=== PATIENT | female | born 1990 | race Caucasian/White ===

== ENCOUNTER 2016-09-17 10:03 | Emergency (ER) | payer BC, MEDICAID, OTHER ==
--- NOTE | 2016-09-17 10:11 | Emergency Department Report ---
Chief Complaint: Vaginal Bleeding Stated Complaint: 10 WKS ,BLOOD IN URINE Time Seen by Provider: 09/17/16 10:07 - HPI History of Present Illness: PT states she is 11 weeks . PT states her lmp was 5-1-17. PT states when she missed her cycle, she took a home test and it was negative. PT states last week, she repeated the test and it was positive. PT states she is having vaginal bleeding now. PT states the bleeding started on . PT states it is like a normal period. PT states she has not seen her OB/ [facility] yet. - ROS Review of Systems: + lower abd cramps - hematuria - dysuria + vaginal bleeding - Exam Physical Exam: pt looks well, non toxic. abd is soft and not tender. MSE screening note: Focused history and physical exam performed. Due to findings the following was ordered: labs, us ED Disposition for MSE Condition: Stable
[2016-09-17 10:13] VITALS: BP 122/80
[2016-09-17 10:32] LABS: Basophils % (Auto) 0.7 % (0.0-1.8); Eosinophils % (Auto) 2.4 % (0.0-4.3); Hematocrit 39.1 % (30.3-42.9); Hemoglobin 13.3 gm/dl (10.1-14.3); Mean Corpuscular HGB Conc 34 % (30-34); Mean Corpuscular Hemoglobin 29 pg (28-32); Mean Corpuscular Volume 84 fl (79-97); Platelet Count 371 K/mm3 (140-440); Red Blood Count 4.66 M/mm3 (3.65-5.03); Red Cell Distribution Width 12.6 % (13.2-15.2); White Blood Count 8.3 K/mm3 (4.5-11.0)
[2016-09-17 10:50] LABS: Alanine Aminotransferase 12 units/L (7-56); Albumin 4.5 g/dL (3.9-5); Albumin/Globulin Ratio 1.3 %; Alkaline Phosphatase 72 units/L (35-129); Anion Gap 17 mmol/L; Blood Urea Nitrogen 9 mg/dL (7-17); Calcium 9.6 mg/dL (8.4-10.2); Carbon Dioxide 27 mmol/L (22-30); Chloride 101.8 mmol/L (98-107); Glucose 89 mg/dL (65-100); Potassium 4.7 mmol/L (3.6-5.0); Sodium 141 mmol/L (137-145); Total Protein 7.9 g/dL (6.3-8.2)
[2016-09-17 11:11] LABS: Bilirubin,Urine NEG (Negative); Blood,Urine LG (Negative); Ketones,Urine NEG (Negative); Leukocyte Esterase,Urine TR (Negative); Nitrite,Urine NEG (Negative); Protein,Urine <15 mg/dL mg/dL (Negative); Urobilinogen,Urine < 2.0 mg/dL (<2.0)
--- NOTE | 2016-09-17 12:18 | Ultrasound Report ---
ULTRASOUND OB LESS THAN 14 WEEKS - TRANSABDOMINAL AND TRANSVAGINAL INDICATION: , bleeding. Serum beta-hCG of 44.46 units. COMPARISON: None similar during this gestation. FINDINGS: Transabdominal and transvaginal pelvic sonography performed in this patient with LMP of 07/02/16 and estimated menstrual age of 11 weeks and 0 days and EDC of 04/08/2017. Uterus approximately 7.7 x 3.2 x 4.2 cm and appears retroverted endovaginally with endometrial thickness of approximately 0.5 cm towards the fundus. No significant pelvic free fluid. Right ovary is 2.4 x 1.6 x 1.7 cm while the left ovary is 3 x 1.2 x 2.6 cm. CONCLUSION: 1. No sonographic evidence of a viable intrauterine gestation at this time, as described. 2. Both ovaries identified, as above. Please also correlate clinically for accuracy of the LMP and with followup serum beta-hCG values, as warranted. Thank you for the opportunity to participate in this patient's care.
--- NOTE | 2016-09-17 14:14 | Emergency Department Report ---
ED HPI - General Chief complaint: Vaginal Bleeding Stated complaint: 10 WKS ,BLOOD IN URINE Time Seen by Provider: 09/17/16 10:07 Source: patient Mode of arrival: Ambulatory Limitations: No Limitations - History of Present Illness Complaint: abdominal pain, vaginal bleeding -: Gradual Location: pelvis, abdomen Radiation: none Severity: mild Severity scale (0 -10): 2 Quality: cramping Consistency: intermittent Improves with: none Worsens with: none Associated symptoms: vaginal bleeding, abdominal pain. denies: nausea/vomiting , vaginal discharge, dysuria, headache, vision changes, malaise, dysparuenia, rash, seizure, shortness of breath, syncope Vaginal bleeding: light :: Yes Number of weeks : 2 OB History - Current : no complications OB History - Previous Pregnancies: no complications Pre- care: none - Related Data : 2 Para: 1 Home Medications Medication Instructions Recorded Confirmed Last Taken Pnv with Ca,No.72/Iron/FA 1 tab PO DAILY 03/22/14 04/10/14 03/22/14 10:00 [ Plus Tablet] 1 Previous Rx's Medication Instructions Recorded Last Taken Type NIFEdipine*For Tocolysis only* 10 mg PO Q6H PRN 30 Days 03/23/14 Unknown Rx [PROCARDIA*For Tocolysis only*] Allergies Allergy/AdvReac Type Severity Reaction Status Date / Time No Known Allergies Allergy Verified 09/17/16 10:07 ED Review of Systems ROS: Stated complaint: 10 WKS ,BLOOD IN URINE Other details as noted in HPI Comment: All other systems reviewed and negative ED Past Medical Hx - Past Medical History Hx Hypertension: No Hx Congestive Heart Failure: No Hx Diabetes: No Hx Deep Vein Thrombosis: No Hx Renal Disease: No Hx Sickle Cell Disease: No Hx Seizures: No Hx Asthma: No Hx COPD: No Hx HIV: No - Social History Smoking Status: Never Smoker Substance Use Type: None - Medications Home Medications: Home Medications Medication Instructions Recorded Confirmed Last Taken Type Pnv with Ca,No.72/Iron/FA 1 tab PO DAILY 03/22/14 04/10/14 03/22/14 10:00 History [ Plus Tablet] 1 NIFEdipine*For Tocolysis only* 10 mg PO Q6H PRN 30 Days 03/23/14 04/10/14 Unknown Rx [PROCARDIA*For Tocolysis only*] ED Physical Exam - General Limitations: No Limitations General appearance: alert, in no apparent distress - Head Head exam: Present: atraumatic, normocephalic - Eye Eye exam: Present: normal appearance - ENT ENT exam: Present: mucous membranes moist - Neck Neck exam: Present: normal inspection - Respiratory Respiratory exam: Present: normal lung sounds bilaterally. Absent: respiratory distress - Cardiovascular Cardiovascular Exam: Present: regular rate, normal rhythm. Absent: systolic murmur, diastolic murmur, rubs, gallop - GI/Abdominal GI/Abdominal exam: Present: soft, normal bowel sounds - Extremities Exam Extremities exam: Present: normal inspection - Back Exam Back exam: Present: normal inspection - Neurological Exam Neurological exam: Present: alert, oriented X3 - Psychiatric Psychiatric exam: Present: normal affect, normal mood - Skin Skin exam: Present: warm, dry, intact, normal color. Absent: rash ED Course Vital Signs 09/17/16 10:08 Temperature 98.2 F Pulse Rate 73 Respiratory 20 Rate Blood Pressure 122/80 O2 Sat by Pulse 100 Oximetry ED Medical Decision Making - Lab Data Result diagrams: 09/17/16 10:15 09/17/16 10:15 - Radiology Data Radiology results: report reviewed, image reviewed - Medical Decision Making patient with minor vaginal bleeding and abdominal cramping, labs negative , HCG at 44 , US is negative. Will need 48 h repeat hcg that she will get with her obgyn , ( already has appointment ), will dc and follow up. Critical care attestation.: If time is entered above; I have spent that time in minutes in the direct care of this critically ill patient, excluding procedure time. ED Disposition Clinical Impression: Threatened , Miscarried within last 12 months Disposition: DC-01 TO HOME OR SELFCARE Is pt being admited?: No Does the pt Need Aspirin: No Condition: Good Additional Instructions: You need to follow up with your OB on Saturday as schedule, for a repeat on the hcg level, Referrals: PRIMARY CARE, [Primary Care Provider] - 3-5 Days Time of Disposition: 14:13
== END 2016-09-17 14:29 | disposition home or self-care (01) ==
LOC: ED 10:03
DX: O20.0 Threatened abortion (principal)
CPT/HCPCS: 36415; 76801; 76817; 80053; 81001; 84702; 85025

== ENCOUNTER 2017-09-11 11:22 | Emergency (ER) | payer BC, OTHER ==
[2017-09-11] MEDS ORDERED: NACL 0.9% 1000 ML 1,000 ML IV ONE (11:37)
[2017-09-11] MEDS ORDERED: MOTRIN PO ONE (11:38)
[2017-09-11] MEDS ORDERED: BICILLIN L-A IM ONE (13:20)
[2017-09-11 13:21] LABS: Hemoglobin 12.8 gm/dl (10.1-14.3); Mean Corpuscular HGB Conc 34 % (30-34); Mean Corpuscular Hemoglobin 28 pg (28-32); Mean Corpuscular Volume 84 fl (79-97); Platelet Count 324 K/mm3 (140-440); Red Cell Distribution Width 13.2 % (13.2-15.2)
--- NOTE | 2017-09-11 13:21 | Emergency Department Report ---
ED ENT HPI - General Chief complaint: Fever Stated complaint: FEVER, STREP THROAT Time Seen by Provider: 09/11/17 11:38 Source: patient Mode of arrival: Ambulatory Limitations: No Limitations - History of Present Illness Initial comments: This is a 27-year-old female nontoxic, well nourished in appearance, no acute signs of distress presents to the ED with c/o of sore throat. Patient that she was in [facility] urgent care and was diagnosed with strep throat and sent over to emergency room for fever. Patient describes sore throat as swallowing razer blades. Patient denies any headache, stiff neck, nausea, vomiting, chest pain, shortness of breath, numbness or tingling. Patient denies any drooling or hoarseness. Patient denies any allergies or significant past medical history. MD complaint: sore throat -: days(s) (2) Location: throat Severity: mild Severity scale (0 -10): 8 Quality: aching Consistency: constant Improves with: none Worsens with: swallowing Associated Symptoms: pain with swallowing, sore throat. denies: fever, cough, gum swelling, toothache, tinnitus, hearing loss, discharge from ear, rhinorrhea - Related Data Home Medications Medication Instructions Recorded Confirmed Last Taken Pnv with Ca,No.72/Iron/FA 1 tab PO DAILY 03/22/14 04/10/14 03/22/14 10:00 [ Plus Tablet] 1 Previous Rx's Medication Instructions Recorded Last Taken Type NIFEdipine*For Tocolysis only* 10 mg PO Q6H PRN 30 Days capsule 03/23/14 Unknown Rx [PROCARDIA*For Tocolysis only*] Ibuprofen [Motrin] 600 mg PO Q8H PRN #30 tablet 09/11/17 Unknown Rx Nystas/Diphen/Xyl Visc/Mylanta 15 ml MM Q6H PRN 5 Days ml 09/11/17 Unknown Rx [Magic Mouthwash] Allergies Allergy/AdvReac Type Severity Reaction Status Date / Time No Known Allergies Allergy Verified 09/17/16 10:07 ED Dental HPI - General Chief complaint: Fever Stated complaint: FEVER, STREP THROAT Time Seen by Provider: 09/11/17 11:38 Source: patient Mode of arrival: Ambulatory Limitations: No Limitations - Related Data Home Medications Medication Instructions Recorded Confirmed Last Taken Pnv with Ca,No.72/Iron/FA 1 tab PO DAILY 03/22/14 04/10/14 03/22/14 10:00 [ Plus Tablet] 1 Previous Rx's Medication Instructions Recorded Last Taken Type NIFEdipine*For Tocolysis only* 10 mg PO Q6H PRN 30 Days capsule 03/23/14 Unknown Rx [PROCARDIA*For Tocolysis only*] Ibuprofen [Motrin] 600 mg PO Q8H PRN #30 tablet 09/11/17 Unknown Rx Nystas/Diphen/Xyl Visc/Mylanta 15 ml MM Q6H PRN 5 Days ml 09/11/17 Unknown Rx [Magic Mouthwash] Allergies Allergy/AdvReac Type Severity Reaction Status Date / Time No Known Allergies Allergy Verified 09/17/16 10:07 ED Review of Systems ROS: Stated complaint: FEVER, STREP THROAT Other details as noted in HPI Constitutional: chills, fever Eyes: denies: eye pain, eye discharge, vision change ENT: throat pain. denies: ear pain Respiratory: denies: cough, shortness of breath, wheezing Cardiovascular: denies: chest pain, palpitations Endocrine: no symptoms reported Gastrointestinal: denies: abdominal pain, nausea, diarrhea Genitourinary: denies: urgency, dysuria, discharge Musculoskeletal: denies: back pain, joint swelling, arthralgia Skin: denies: rash, lesions Neurological: denies: headache, weakness, paresthesias Psychiatric: denies: anxiety, depression Hematological/Lymphatic: denies: easy bleeding, easy bruising ED Past Medical Hx - Past Medical History Previous Medical History?: Yes Hx Hypertension: No Hx Congestive Heart Failure: No Hx Diabetes: No Hx Deep Vein Thrombosis: No Hx Renal Disease: No Hx Sickle Cell Disease: No Hx Seizures: No Hx Asthma: No Hx COPD: No Hx HIV: No - Surgical History Past Surgical History?: No - Social History Smoking Status: Never Smoker Substance Use Type: Alcohol, Prescribed - Medications Home Medications: Home Medications Medication Instructions Recorded Confirmed Last Taken Type Pnv with Ca,No.72/Iron/FA 1 tab PO DAILY 03/22/14 04/10/14 03/22/14 10:00 History [ Plus Tablet] 1 NIFEdipine*For Tocolysis only* 10 mg PO Q6H PRN 30 Days capsule 03/23/14 Unknown Rx [PROCARDIA*For Tocolysis only*] Ibuprofen [Motrin] 600 mg PO Q8H PRN #30 tablet 09/11/17 Unknown Rx Nystas/Diphen/Xyl Visc/Mylanta 15 ml MM Q6H PRN 5 Days ml 09/11/17 Unknown Rx [Magic Mouthwash] ED Physical Exam - General Limitations: No Limitations General appearance: alert, in no apparent distress - Head Head exam: Present: atraumatic, normocephalic - Eye Eye exam: Present: normal appearance, PERRL, EOMI Pupils: Present: normal accommodation - ENT ENT exam: Present: mucous membranes moist, TM's normal bilaterally, normal external ear exam - Expanded ENT Exam Expanded Ear exam: Present: normal external inspection Mouth exam: Present: normal external inspection, tongue normal. Absent: drooling, trismus, muffled voice, tongue elevation, laceration Teeth exam: Present: normal inspection Throat exam: Positive: tonsillar erythema, tonsillomegaly, tonsillar exudate, other (Uvula midline. No abscess or swelling noted. no drooling. No hoarseness.) . Negative: R peritonsillar mass, L peritonsillar mass - Neck Neck exam: Present: normal inspection, full ROM, lymphadenopathy (bilateral tonsillar). Absent: tenderness, meningismus - Respiratory Respiratory exam: Present: normal lung sounds bilaterally. Absent: respiratory distress, wheezes, rales, rhonchi, stridor, chest wall tenderness, accessory muscle use, decreased breath sounds, prolonged expiratory - Cardiovascular Cardiovascular Exam: Present: regular rate, normal rhythm, tachycardia, normal heart sounds. Absent: bradycardia, irregular rhythm, systolic murmur, diastolic murmur, rubs, gallop - GI/Abdominal GI/Abdominal exam: Present: soft, normal bowel sounds - Extremities Exam Extremities exam: Present: normal inspection, full ROM, normal capillary refill - Back Exam Back exam: Present: normal inspection, full ROM - Neurological Exam Neurological exam: Present: alert, oriented X3, normal gait - Psychiatric Psychiatric exam: Present: normal affect, normal mood - Skin Skin exam: Present: warm, dry, intact, normal color. Absent: rash ED Course Vital Signs 09/11/17 09/11/17 09/11/17 11:29 11:57 12:15 Temperature 102.7 F H Pulse Rate 104 H Respiratory 18 18 18 Rate Blood Pressure 128/79 Blood Pressure [Left] O2 Sat by Pulse 95 Oximetry 09/11/17 09/11/17 13:21 13:27 Temperature 98.3 F Pulse Rate 89 88 Respiratory 16 Rate Blood Pressure Blood Pressure 95/59 123/61 [Left] O2 Sat by Pulse 97 Oximetry - Reevaluation(s) Reevaluation #1: 09/11/17 13:20 Patient is speaking in full sentences with no signs of distress noted. - Consultations Consultation #1: 09/11/17 13:37 Patient has been consulted with Dr. Beard about patient history, physical exam, and labs and examined and screened patient and agrees to ED plan of care and discharge plan of care. ED Medical Decision Making - Lab Data Result diagrams: 09/11/17 13:08 - Medical Decision Making This is a 27-year-old female that presents with tonsillitis. Patient is stable was examined by me and Zackary Rosa. There is no drooling. No tonsillar abscess noted. Uvula is midline. Patient received Bicillin IM in the ED. Labs obtained and unremarkable. Patient also received 1L of normal saline. Vital signs are stable. Patient is not febrile and normal heart rate. Patient is drinking in the ED. Patient was instructed to Follow-up with a primary care doctor in 3-5 days or if symptoms worsen and continue return to emergency room as soon as possible. At time of discharge, the patient does not seem toxic or ill in appearance. No acute signs of distress noted. Patient agrees to discharge treatment plan of care. No further questions noted by the patient. Critical care attestation.: If time is entered above; I have spent that time in minutes in the direct care of this critically ill patient, excluding procedure time. ED Disposition Clinical Impression: Tonsillitis with exudate Disposition: DC-01 TO HOME OR SELFCARE Is pt being admited?: No Does the pt Need Aspirin: No Condition: Stable Instructions: Tonsillitis (ED) Additional Instructions: Follow-up with a primary care doctor in 3-5 days or if symptoms worsen and continue return to emergency room as soon as possible. Prescriptions: Ibuprofen [Motrin] 600 mg PO Q8H PRN #30 tablet PRN Reason: Pain Nystas/Diphen/Xyl Visc/Mylanta [Magic Mouthwash] 15 ml MM Q6H PRN 5 Days ml PRN Reason: Sore Throat Referrals: PRIMARY CARE, [Primary Care Provider] - 3-5 Days JERMAN CHÁVEZ MD [Staff Physician] - 3-5 Days ADAM CONTRERAS MD [Staff Physician] - 3-5 Days [facility] [Outside] - 3-5 Days [facility] [Outside] - 3-5 Days Forms: Work/School Release Form(ED)
[2017-09-11 13:28] VITALS: BP 123/61
[2017-09-11 13:38] LABS: BUN/Creatinine Ratio 20; Blood Urea Nitrogen 10 mg/dL (7-17); Calcium 8.4 mg/dL (8.4-10.2); Hemolysis Index 3
[2017-09-11 14:03] LABS: Band Neutrophils # (Manual) 0.4 K/mm3; Eosinophils % (Manual) 0 % (0.0-4.3); Total Cells Counted 100
[2017-09-11 14:04] LABS: Anisocytosis 1+; Platelet Estimate Cons
== END 2017-09-11 14:07 | disposition home or self-care (01) ==
LOC: ED 11:22
DX: J03.90 Acute tonsillitis, unspecified (principal)
CPT/HCPCS: 36415; 80048; 84703; 85007; 85025; 96372; 99283; J0561; J7030

== ENCOUNTER 2019-08-08 03:57 | Inpatient (IN) | payer BC ==
[2019-08-08] MEDS ORDERED: fentaNYL 100 MCG/2 ML INJ IV PRN (05:05)
[2019-08-08] MEDS ORDERED: TERBUTALINE 1 MG/1 ML INJ SUB-Q PRN (05:05)
[2019-08-08] MEDS ORDERED: LIDOCAINE (2%) 20 MG/1 ML VIAL 20 ML MDV INFILTRATI ONE (05:05)
[2019-08-08] MEDS ORDERED: ePHEDrine SULFATE 50 MG/1 ML INJ IV PRN (05:05)
[2019-08-08 05:57] LABS: Hematocrit 37.2 % (30.3-42.9); Hemoglobin 12.6 gm/dl (10.1-14.3); Mean Corpuscular HGB Conc 34 % (30-34); Mean Corpuscular Volume 83 fl (79-97); Platelet Count 258 K/mm3 (140-440); Red Blood Count 4.49 M/mm3 (3.65-5.03); Red Cell Distribution Width 16.9 % (13.2-15.2)
[2019-08-08] MEDS ORDERED: OXYTOCIN 20 UNIT/1000ML DRIP 20 UNITS/1,000 ML BAG IV SCH (06:00)
[2019-08-08] MEDS: LACTATED RINGERS 1,000 ML IV SCH ×2 (06:30→10:26)
[2019-08-08] MEDS ORDERED: DEXMEDETOMIDINE 200 MCG/2 ML VIAL IV ONE (09:21)
[2019-08-08] MEDS: ePHEDrine SULFATE 50 MG/1 ML INJ IV PRN ×2 (09:57→12:58)
[2019-08-08] MEDS ORDERED: NALOXONE 2 MG/2 ML INJ IV PRN (10:00)
[2019-08-08] MEDS ORDERED: fentaNYL-BUPIV 2 MCG/ML-0.125% 200 MCG/100 ML BAG EPIDURAL SCH (10:00)
[2019-08-08] MEDS ORDERED: OXYTOCIN DRIP 30,000 MILLIUNITS/500 ML BAG IV ONE (10:29)
[2019-08-08] MEDS ORDERED: ONDANSETRON 4 MG/2 ML INJ ONE (10:29)
[2019-08-08] MEDS ORDERED: ONDANSETRON 4 MG/2 ML INJ IV PRN (10:37)
[2019-08-08] MEDS ORDERED: OXYTOCIN DRIP 30 UNITS/500 ML BAG IV SCH (11:00)
[2019-08-08] MEDS ORDERED: MAGNESIUM HYDROXIDE (MOM) ORAL LIQD UDC PO PRN (18:15)
[2019-08-08] MEDS ORDERED: WITCH HAZEL/ GLYCERIN PAD TP PRN (18:15)
[2019-08-08] MEDS ORDERED: LANOLIN/ZINC/DIMETHICONE (LANSINOH) 7 GM TP PRN (18:15)
[2019-08-08] MEDS: IBUPROFEN 600 MG TAB PO SCH (18:37)
[2019-08-08] MEDS: DOCUSATE SODIUM 100 MG CAP PO SCH (22:29)
[2019-08-09] MEDS: IBUPROFEN 600 MG TAB PO SCH ×4 (01:38→23:56)
[2019-08-09] MEDS ORDERED: DIPHtheria,PERTUSSIS(ACELL),TETANUS VACCINE/PF 0.5 ML VIAL IM ONE (06:00)
[2019-08-09 06:21] LABS: Hemoglobin 10.2 gm/dl (10.1-14.3)
[2019-08-09] MEDS: oxyCODONE /ACETAMINOPHEN 5-325MG TAB PO PRN ×3 (06:29→18:32)
[2019-08-09] MEDS: DOCUSATE SODIUM 100 MG CAP PO SCH ×2 (09:12→23:56)
[2019-08-09] MEDS: FERROUS SULFATE 325 MG TAB PO SCH (10:00)
[2019-08-10] MEDS: IBUPROFEN 600 MG TAB PO SCH (05:33)
[2019-08-10] MEDS: FERROUS SULFATE 325 MG TAB PO SCH (10:35)
[2019-08-10] MEDS: DOCUSATE SODIUM 100 MG CAP PO SCH (10:35)
[2019-08-10] MEDS: oxyCODONE /ACETAMINOPHEN 5-325MG TAB PO PRN (10:36)
[2019-08-10 12:52] VITALS: BP 122/79
== END 2019-08-10 12:40 | disposition home or self-care (01) | DRG 768 ==
LOC: TRG 03:57 → APU 04:03 → TRG 05:05 → LD 05:05 → OB 19:34
PROVIDERS: ADMIT Obstetrics & Gynecology; ATTEND Obstetrics & Gynecology
PROC: 10E0XZZ Delivery of Products of Conception, External Approach (ICD-10-PCS; principal; 2019-08-08)
PROC: 0DQR0ZZ Repair Anal Sphincter, Open Approach (ICD-10-PCS; 2019-08-08)
PROC: 0W8NXZZ Division of Female Perineum, External Approach (ICD-10-PCS; 2019-08-08)
PROC: 3E0234Z Introduction of Serum, Toxoid and Vaccine into Muscle, Percutaneous Approach (ICD-10-PCS; 2019-08-09)
DX: O66.0 Obstructed labor due to shoulder dystocia (principal); Z37.0 Single live birth; O70.20 Third degree perineal laceration during delivery, unspecified; D62 Acute posthemorrhagic anemia; Z3A.38 38 weeks gestation of pregnancy; Z23 Encounter for immunization; O76 Abnormality in fetal heart rate and rhythm complicating labor and delivery; O90.81 Anemia of the puerperium
CPT/HCPCS: 36415; 76816; 85014; 85018; 85027; 86850; 86900; 86901; 88307; 90715; G0378; J2405; J2590; J3010; J3490; J7120